=== PATIENT | female | born 1965 | race African-American/Black ===

== ENCOUNTER 2018-06-01 13:17 | Inpatient (IN) | payer OTHER ==
[~2018-06-01 13:17] MED LIST: CEFAZOLIN 1 GM/50 ML (PMX) 50 ML IVPB; SOD CHLORIDE 0.9% 1,000 ML IV
[2018-06-01 14:34] LABS: ADD MAN DIFF? NO
[2018-06-01 14:38] LABS: ABNORMAL IP MESSAGE 1; BASOPHILS % 0.3 % (0.0-2.0); HEMATOCRIT 36.6 % (37.0-47.0); HEMOGLOBIN 11.9 g/dl (12.0-16.0); LYMPHOCYTES # 1.3 10^3/ul (0.8-2.9); LYMPHOCYTES % 40.2 % (15.0-51.0); MEAN CORPUSCULAR HEMOGLOBIN 32.5 pg (29.0-33.0); MEAN CORPUSCULAR HGB CONC 32.5 g/dl (32.0-37.0); MEAN PLATELET VOLUME 9.7 fl (7.4-10.4); MONOCYTE # 0.4 10^3/ul (0.3-0.9); MONOCYTES % 11.9 % (0.0-11.0); NEUTROPHIL # 1.4 10^3/ul (1.6-7.5); NEUTROPHILS % 46.3 % (39.0-77.0); PLATELET COUNT 87 10^3/UL (140-415); RED BLOOD COUNT 3.66 10^6/ul (4.20-5.40); RED CELL DISTRIBUTION WIDTH 13.1 % (11.5-14.5)
[2018-06-01 14:38] LABS: WHITE BLOOD COUNT 3.1 10^3/ul (4.8-10.8)
[2018-06-01 14:51] LABS: HOLD TRANSMISSIONS 1; POSITIVE DIFF @See below
[2018-06-01] MEDS ORDERED: PROPOFOL 20 ML (15:57)
[2018-06-01] MEDS ORDERED: MIDAZOLAM 1 MG/ML 2 ML INJ (15:57)
[2018-06-01] MEDS ORDERED: CEFAZOLIN 1 GM INJ (15:57)
[2018-06-01] MEDS ORDERED: ONDANSETRON 4 MG INJ (15:57)
[2018-06-01] MEDS ORDERED: METOCLOPRAMIDE 10 MG INJ (15:57)
[2018-06-01] MEDS ORDERED: ONDANSETRON 4 MG INJ IV ×2 (16:00→18:00)
[2018-06-01] MEDS ORDERED: MEPERIDINE 25 MG INJ IV (16:00)
[2018-06-01] MEDS ORDERED: HYDROmorphONE 1 MG/5 ML IV SYRINGE IV ×2 (16:00)
[2018-06-01] MEDS ORDERED: FENTAnyl 50 MCG/ML VIAL (16:10)
[2018-06-01] MEDS ORDERED: EPHEDrine SULFATE 50 MG/5 ML SYG (16:22)
[2018-06-01] MEDS: HYDROmorphONE 1 MG/5 ML IV SYRINGE IV (17:30)
[2018-06-01] MEDS: ALBUTEROL 0.083% (NEB) 2.5 MG/3 ML AMP HHN (18:14)
[2018-06-01] MEDS: DIPHENHYDRAMINE 50 MG INJ IV (18:14)
[2018-06-01] MEDS ORDERED: MIDAZOLAM 1 MG/ML 2 ML INJ IV (18:30)
[2018-06-01] MEDS: D5W-0.45 NACL + KCL 20 MEQ 1,000 ML IV (19:50)
[2018-06-02] MEDS: D5W-0.45 NACL + KCL 20 MEQ 1,000 ML IV ×4 (01:31→17:31)
[2018-06-02] MEDS: ACETAMINOPHEN 1000MG/100ML IV 100 ML IVPB (02:32)
[2018-06-02] MEDS: CEPASTAT LOZENGE MT (07:15)
[2018-06-02] MEDS: morphine 2 MG INJ IV ×3 (07:40→21:03)
[2018-06-02 12:18] LABS: ADD MAN DIFF? NO
[2018-06-02 12:20] LABS: ABNORMAL IP MESSAGE 1; BASOPHILS % 0.3 % (0.0-2.0); EOSINOPHILS % 0.8 % (0.0-7.0); HEMATOCRIT 34.6 % (37.0-47.0); HEMOGLOBIN 10.9 g/dl (12.0-16.0); LYMPHOCYTES # 1.2 10^3/ul (0.8-2.9); LYMPHOCYTES % 30.2 % (15.0-51.0); MEAN CORPUSCULAR HEMOGLOBIN 32.4 pg (29.0-33.0); MEAN CORPUSCULAR HGB CONC 31.5 g/dl (32.0-37.0); MEAN PLATELET VOLUME 9.3 fl (7.4-10.4); MONOCYTE # 0.4 10^3/ul (0.3-0.9); MONOCYTES % 11.1 % (0.0-11.0); NEUTROPHIL # 2.2 10^3/ul (1.6-7.5); NEUTROPHILS % 57.6 % (39.0-77.0); PLATELET COUNT 77 10^3/UL (140-415); RED BLOOD COUNT 3.36 10^6/ul (4.20-5.40); RED CELL DISTRIBUTION WIDTH 13.6 % (11.5-14.5)
[2018-06-02 12:20] LABS: WHITE BLOOD COUNT 3.9 10^3/ul (4.8-10.8)
[2018-06-02 12:41] LABS: POSITIVE DIFF @See below
[2018-06-02] MEDS: DIPHENHYDRAMINE 25 MG CAP PO (18:42)
[2018-06-03] MEDS: D5W-0.45 NACL + KCL 20 MEQ 1,000 ML IV ×2 (01:31→09:31)
[2018-06-03] MEDS: morphine 2 MG INJ IV (05:46)
[2018-06-03] MEDS: HYDROCODONE/APAP (5/325) TAB PO (14:30)
== END 2018-06-03 16:50 | disposition home or self-care (01) | DRG 580 ==
LOC: REC 13:17 → MS1 19:50
PROVIDERS: Surgery Surgical Oncology
PROC: 0HTV0ZZ Resection of Bilateral Breast, Open Approach (ICD-10-PCS; principal; 2018-06-01 15:57)
PROC: 07B60ZX Excision of Left Axillary Lymphatic, Open Approach, Diagnostic (ICD-10-PCS; 2018-06-01 15:57)
DX: D05.12 Intraductal carcinoma in situ of left breast (principal); D61.9 Aplastic anemia, unspecified; Z40.01 Encounter for prophylactic removal of breast
CPT/HCPCS: 84703; 85025; 86850; 86900; 86901; 88307; 94664

== ENCOUNTER 2018-10-31 08:00 | Day surgery (SDC) | payer OTHER ==
[~2018-10-31 08:00] MED LIST changes: +ACETAMINOPHEN 500 MG TAB PO; -CEFAZOLIN 1 GM/50 ML (PMX) 50 ML IVPB; +DESFLURANE 15 MIN; +EPHEDrine 25 MG/5 ML SYG; +PHENYLephrine (100 MCG/ML) 10ML SYG; +PROPOFOL 40 ML; +ROCURONIUM 50 MG INJ
[2018-10-31] MEDS ORDERED: ONDANSETRON 4 MG INJ (08:01)
[2018-10-31] MEDS ORDERED: FENTAnyl 50 MCG/ML VIAL (08:01)
[2018-10-31] MEDS ORDERED: MIDAZOLAM 1 MG/ML 2 ML INJ (08:01)
[2018-10-31] MEDS ORDERED: LIDOCAINE 2% (SDV) 5 ML INJ (08:01)
[2018-10-31] MEDS ORDERED: CEFAZOLIN 1 GM INJ (08:01)
[2018-10-31] MEDS ORDERED: FAMOTIDINE 20 MG INJ (08:02)
[2018-10-31] MEDS ORDERED: DEXAMETHASONE 4 MG/ML 5 ML INJ (08:02)
[2018-10-31] MEDS ORDERED: HYDROCODONE/APAP (5/325) TAB PO (08:30)
[2018-10-31] MEDS ORDERED: morphine 2 MG INJ IV ×3 (08:30→09:00)
[2018-10-31] MEDS ORDERED: ACETAMINOPHEN 325 MG TAB PO (08:30)
[2018-10-31] MEDS ORDERED: BUPIVACAINE 0.25% (MPF) 30 ML INJ (08:53)
[2018-10-31] MEDS ORDERED: ONDANSETRON 4 MG INJ IV (09:00)
[2018-10-31] MEDS ORDERED: ALBUTEROL 0.083% (NEB) 2.5 MG/3 ML AMP HHN (09:00)
[2018-10-31] MEDS ORDERED: OXYCODONE/ACETAMINOPHEN (5/325) TAB PO ×2 (09:00)
[2018-10-31] MEDS ORDERED: LABETALOL HCL 20MG INJ IV (09:00)
[2018-10-31] MEDS ORDERED: FENTAnyl 50 MCG/ML VIAL IV ×2 (09:00)
[2018-10-31] MEDS ORDERED: DIPHENHYDRAMINE 50 MG INJ IV (09:00)
[2018-10-31] MEDS ORDERED: HYDROmorphONE 1 MG/5 ML IV SYRINGE IV (09:00)
[2018-10-31] MEDS ORDERED: CA CHLORIDE 10% 10 ML SYRINGE (09:44)
[2018-10-31] MEDS: BUPIVACAINE 0.25%/EPI (SDV) 30 ML INJ (09:45)
[2018-10-31] MEDS: GENTAMICIN 80 MG INJ (09:45)
[2018-10-31] MEDS: POLYMYXIN/BACITRACIN 1L IRRIG (09:46)
[2018-10-31] MEDS ORDERED: KETAMINE (50 MG/ML) 10 ML VIAL (09:58)
[2018-10-31] MEDS ORDERED: GLYCOPYRROLATE 0.4 MG INJ (10:01)
[2018-10-31] MEDS ORDERED: SUGAMMADEX SODIUM 200 MG/2 ML VIAL IV (10:04)
[2018-10-31] MEDS: SODIUM CL BACTERIOSTATIC 30 ML INJ (10:35)
[2018-10-31] MEDS: BUPIVACAINE LIPOSOME/PF 266 MG/20 ML VIAL INFIL (10:35)
[2018-10-31] MEDS: MEPERIDINE 25 MG INJ IV ×2 (11:09→11:52)
[2018-10-31] MEDS: ONDANSETRON 4 MG INJ IV (11:09)
[2018-10-31] MEDS: HYDROmorphONE 1 MG/5 ML IV SYRINGE IV ×2 (11:26→11:36)
[2018-10-31] MEDS: METOCLOPRAMIDE 10 MG INJ IV (12:17)
== END 2018-10-31 12:44 | disposition home or self-care (01) ==
LOC: SDS 08:00
DX: Z85.3 Personal history of malignant neoplasm of breast (principal); D61.9 Aplastic anemia, unspecified; F41.9 Anxiety disorder, unspecified
CPT/HCPCS: 19357